=== PATIENT | female | born 1995 | race American Indian/Alaskan Native ===

== ENCOUNTER 2023-01-03 13:18 | Emergency (ER) | payer MEDICAID ==
[~2023-01-03] VITALS: Ht 162.6 cm; Wt 135.4 kg
[2023-01-03 13:24] VITALS: BP 146/103
[2023-01-03] MEDS ORDERED: amox tr/potassium clavulanate 875/125mg TAB PO ONE (14:30)
[2023-01-03] MEDS ORDERED: LIDOcaine 1% 30ml preserv. free vial SQ STA (14:30)
[2023-01-03] MEDS ORDERED: TETanus/Pertussis (Acell)/Diphther VAC/PF (Tdap-Adult) 0.5ml syringe IMVAC ONE (14:30)
[2023-01-03] MEDS ORDERED: rabies vaccine (PCEC)/PF 2.5 unit kit IMVAC ONE (14:30)
[2023-01-03] MEDS ORDERED: rabies immune globulin/PF 150 unit/ml inj IMVAC STA (14:30)
[2023-01-03] MEDS ORDERED: LIDOcaine 1%/PF 5ML 10 MG/ML VIAL SQ STA (16:17)
[2023-01-03] MEDS ORDERED: AMOX-117 PO (17:48)
== END 2023-01-03 18:50 | disposition home or self-care (01) ==
LOC: ER 13:18
DX: S61.052A Open bite of left thumb without damage to nail, initial encounter (principal); Z79.899 Other long term (current) drug therapy; W54.0XXA Bitten by dog, initial encounter; Z20.3 Contact with and (suspected) exposure to rabies; Y93.89 Activity, other specified; Y92.89 Other specified places as the place of occurrence of the external cause; Y99.8 Other external cause status
CPT/HCPCS: 64450; 73140; 90376; 90471; 90472; 90675; 90715; 99284; A6222; A6449